=== PATIENT | male | born 1970 | race Hispanic/Latino ===

== ENCOUNTER 2019-01-02 05:56 | Day surgery (SDC) | payer BC ==
[2019-01-02] MEDS ORDERED: Fentanyl 100 MCG/2 ML VIAL ONE (06:25)
[2019-01-02] MEDS ORDERED: Ketorolac Tromethamine 30 MG/ML VIAL ONE (06:29)
[2019-01-02 06:35] LABS: #Basophils 0.1 thou/uL (0.0-0.2); #Eosinphils 0.3 thou/uL (0.0-0.7); #Lymphocytes 2.7 thou/uL (1.20-3.40); #Monocytes 0.8 thou/uL (0.11-0.59); #Neutrophils 2.1 thou/uL (1.40-6.50); %Basophils 1.2 % (0.0-1.0); %Eosinophils 5.3 % (0.0-10.0); %Lymphocytes 44.8 % (21.0-51.0); %Neutrophils 35.8 % (42.0-75.0); Hemoglobin 12.9 g/dL (14.0-18.0); Mean Corpuscular HGB CONC 33.6 g/dL (32.0-36.0); Mean Corpuscular Hemoglobin 31.5 pg (27.0-31.0); Mean Corpuscular Volume 93.7 fL (78.0-98.0); Mean Platelet Volume 7.2 fL (7.4-10.4); Platelet Count 194 thou/uL (130-400); RBC Distribution Width 12.2 % (11.5-14.5); Red Blood Cell (RBC) Count 4.09 mill/uL (4.70-6.10); White Blood Cell (WBC) Count 5.9 thou/uL (4.8-10.8)
[2019-01-02] MEDS ORDERED: Bupivacaine/Epinephrine 0.25% 30 ML VIAL ONE (06:55)
[2019-01-02] MEDS ORDERED: Midazolam HCl 2 mg/2 ml Vial ONE (07:01)
[2019-01-02 07:09] LABS: Anion Gap 9 mmol/L (10-20); BUN (Urea Nitrogen) 10 mg/dL (8.9-20.6); Calc. Creatinine Clearance 0 mL/min (70-130); Calcium 9.5 mg/dL (7.8-10.44); Carbon Dioxide 28 mmol/L (22-29); Chloride 103 mmol/L (98-107); Estimated GFR-MDRD 84; Glucose 75 mg/dL (70-105); Potassium 3.3 mmol/L (3.5-5.1); Sodium 137 mmol/L (136-145)
[2019-01-02 07:46] LABS: ALT (SGPT) 10 U/L (8-55); AST (SGOT) 18 U/L (5-34); Albumin 4.1 g/dL (3.5-5.0); Alkaline Phosphatase 49 U/L (40-150); Anion Gap 9 mmol/L (10-20); BUN (Urea Nitrogen) 11 mg/dL (8.9-20.6); Bilirubin, Total 0.6 mg/dL (0.2-1.2); Calc. Creatinine Clearance 0 mL/min (70-130); Calcium 9.6 mg/dL (7.8-10.44); Carbon Dioxide 28 mmol/L (22-29); Chloride 103 mmol/L (98-107); Estimated GFR-MDRD 80; Globulin 2.7 g/dL (2.4-3.5); Glucose 75 mg/dL (70-105); Potassium 3.3 mmol/L (3.5-5.1); Protein, Total 6.8 g/dL (6.0-8.3); Sodium 137 mmol/L (136-145)
[2019-01-02] MEDS ORDERED: HYDROcodone/Acetaminophen 5/325 mg Tablet ONE (11:01)
--- NOTE | 2019-01-02 16:54 | EKG ---
Test Reason : PREOP Blood Pressure : / mmHG Vent. Rate : 050 BPM Atrial Rate : 050 BPM P-R Int : 158 ms QRS Dur : 108 ms QT Int : 458 ms P-R-T Axes : -02 046 051 degrees QTc Int : 417 ms Sinus bradycardia Otherwise normal ECG No previous ECGs available Confirmed by DR. Laureen CALDERON ([id number]) on 01/02/2019 4:54:00 PM Referred By: LINDSAY Confirmed By:DR. Laureen CALDERON
--- NOTE | 2019-01-03 14:52 | PDOC.OP ---
Operative Note - Operative Note Operative Note: DATE OF PROCEDURE: 01/02/2019 PROCEDURES: Laparoscopic cholecystectomy and repair of umbilical hernia. SURGEON: David Hernandez M.D. PREOPERATIVE DIAGNOSIS: Symptomatic cholelithiasis and umbilical hernia, recurrent POSTOPERATIVE DIAGNOSIS: Symptomatic cholelithiasis and umbilical hernia, recurrent FINDINGS: Incarcerated preperitoneal fat with a tiny fascial defect, repaired primarily. White walled fibrotic gallbladder with innumerable stones. HISTORY: Patient with multiple episodes of abdominal pain, some of which are consistent with biliary colic. He also has a possible history of diverticulitis , but only one documented by imaging. Several of his episodes diagnosed as diverticulitis are possibly consistent with gallbladder attacks. Laparoscopic cholecystectomy was recommended for symptomatic relief. Preoperative LFTs were normal and bile duct was normal caliber on preoperative imaging. PROCEDURE: After informed consent was obtained and appropriate preoperative antibiotics were administered, the patient was taken to the operating room and placed in the supine position and general endotracheal anesthesia was administered. The stomach was decompressed with an OG tube and the abdomen was prepped and draped in standard sterile fashion. Local anesthesia was infused to the skin and subcutaneous tissues at the supraumbilical level, and the previous scar was excised. Dissection was carried down to the palpable bulge of preperitoneal fat which was dissected free circumferentially. This was encased in dense scar tissue and the actual fascial defect could not be identified. The preperitoneal fat was resected and a right subcostal incision made after anesthesia was infused at that site. The fascia was elevated and a Veress needle was attempted to be placed at the right subcostal location, but pressures rapidly quin to 15, consistent with insufflation into the preperitoneal space. Dissection was carried down to the anterior rectus sheath which was incised and stay sutures placed. The rectus muscles were split and the posterior sheath incised under direct vision. The peritoneum was elevated and incised and a 5 mm trocar placed and secured. Carbon dioxide gas was insufflated to an intra-abdominal pressure 15 which the patient tolerated well. The abdominal cavity was carefully examined. There was some blood on the underlying omentum, but this appeared to be dripping down from the port sites. The underlying colon appeared healthy and undamaged. Attention was turned to examination of the umbilical site. There was some omentum adherent to the abdominal wall at the expected location of the recurrent hernia. Local anesthesia was infused to the skin and subcutaneous tissues at the right lateral abdominal site and a trocar was placed under direct vision of the laparoscope. The omental adhesions were taken down and a tiny fascial defect identified. A 5 mm trocar was attempted to be placed through the defect but could only be placed in proximity to it. The camera was moved back down to the umbilical position and local anesthesia infused at the epigastric site. A 10 mm trocar was placed there. The omentum was drawn superiorly and the underlying colon carefully examined. There was no evidence of injury. Attention was then turned to the cholecystectomy. The fundus of the gallbladder was grasped and retracted superiorly. The infundibulum was grasped and retracted laterally. The serosa was stripped inferiorly at the level of the neck of the gallbladder exposing the cystic duct and artery which were traced clearly to their insertion in the gallbladder. Critical view of safety was obtained and the cystic duct and artery were clipped and divided between clips. The gallbladder was then dissected free of the gallbladder bed using hook electrocautery. Prior to complete removal of the gallbladder from the gallbladder bed, the area of the cystic duct and artery stumps was examined. The clips were in good position completely across these structures and there was no bleeding and no leakage of bile. The gallbladder was then placed into an EndoCatch bag and drawn out through the epigastric incision. This required opening the gallbladder and removing innumerable stones. The epigastric trocar was replaced and the operative site easily irrigated to clear. There was no significant bleeding or spillage of bile. The epigastric trocar was removed and the fascia closed under direct laparoscopic vision with a 0 Vicryl suture on a GraNee needle in a [id number] manner with excellent technical result. The camera was moved to the right lateral position and the umbilical trocar removed and the fascial defect bridged with a 0 Vicryl suture on a GraNee needle under direct laparoscopic vision. This suture was not tied, and the trocar was replaced and the camera moved back down to that position. The right subcostal trocar was removed and the internal rectus sheath closed with a 0 Vicryl suture on a GraNee needle under direct laparoscopic vision. This closure was then reinforced by closing the stay sutures on the anterior rectus sheath. The right lateral abdominal trocar was removed and hemostasis verified. Carbon dioxide gas was allowed to desufflate through the umbilical trocar which was then removed and the fascial suture secured. The skin incisions were closed with 4-0 subcuticular Monocryl sutures and Dermabond dressings were placed. The patient was extubated and taken to the recovery room in good condition. There were no complications. ESTIMATED BLOOD LOSS: Minimal. SPECIMEN : Gallbladder and contents.
== END 2019-01-02 11:50 | disposition home or self-care (01) ==
LOC: SDC 05:56
PROVIDERS: ATTEND Surgery
PROC: 0FT44ZZ Resection of Gallbladder, Percutaneous Endoscopic Approach (ICD-10-PCS; principal; 2019-01-02)
PROC: 0WQF0ZZ Repair Abdominal Wall, Open Approach (ICD-10-PCS; principal; 2019-01-02)
DX: K80.10 Calculus of gallbladder with chronic cholecystitis without obstruction (principal); K42.0 Umbilical hernia with obstruction, without gangrene; M19.90 Unspecified osteoarthritis, unspecified site; I10 Essential (primary) hypertension; Z87.891 Personal history of nicotine dependence; Z79.899 Other long term (current) drug therapy
CPT/HCPCS: 36415; 80048; 85025; 88304; 93005; 93010; J0131; J0690; J1885; J2250; J3010

== ENCOUNTER 2020-01-25 09:26 | Emergency (ER) | payer BC, OTHER ==
[2020-01-25] MEDS ORDERED: Ketorolac Tromethamine 30 MG/ML VIAL ONE (09:40)
--- NOTE | 2020-01-25 10:25 | ULT ---
EXAM: Left lower extremity venous Doppler US HISTORY: left lower extremity pain FINDINGS: Grayscale, color-flow, Doppler evaluation, spectral analysis of the left lower extremity venous struc tures is performed with 2-D imaging. The left common femoral, superficial femoral, popliteal, posterior tibial, proximal greater saphenous and profunda femoral veins are imaged. There is normal luminal compressibility, flow, and augmentation the visualized deep venous structures of the left lower extremity. IMPRESSION: No evidence of a deep vein thrombosis in the left lower extremity.
== END 2020-01-25 11:57 | disposition home or self-care (01) ==
LOC: ERS 09:26
DX: M79.662 Pain in left lower leg (principal); I10 Essential (primary) hypertension; F41.9 Anxiety disorder, unspecified; Z87.891 Personal history of nicotine dependence; Z79.899 Other long term (current) drug therapy
CPT/HCPCS: J1885

== ENCOUNTER 2021-03-21 19:03 | Emergency (ER) | payer OTHER ==
[2021-03-21] MEDS ORDERED: HYDROcodone/Acetaminophen 10/325 mg Tablet ONE (20:46)
== END 2021-03-21 22:00 | disposition home or self-care (01) ==
LOC: ERS 19:03
DX: M79.605 Pain in left leg (principal); I10 Essential (primary) hypertension; Z87.891 Personal history of nicotine dependence